=== PATIENT | female | born 1980 | race Caucasian/White ===

== ENCOUNTER 2020-08-15 14:41 | Emergency (ER) | payer SELFPAY ==
[~2020-08-15] VITALS: Ht 152.4 cm; Wt 98.0 kg
[2020-08-15 14:45] VITALS: BP 150/81
--- NOTE | 2020-08-15 14:50 | NUR ---
PT HOOK TO INSPECTOR MULTIFOCAL LENS WITH STABLE V/S
--- NOTE | 2020-08-15 14:58 | NUR ---
DR HERRERA AT BEDSIDE EVALAUTING PT.
[2020-08-15] MEDS ORDERED: DICYCLOMINE HCL LIQUID 20 MG, ALUMINUM HYD/MAG/SIMETHICONE 30 ML, LIDOCAINE VISCOUS 2% ... PO ONE ×3 (15:05)
[2020-08-15] MEDS ORDERED: LIDOCAINE VISCOUS 2% 20 ML UDC ONE (15:12)
[2020-08-15] MEDS ORDERED: DICYCLOMINE HCL LIQUID 10 MG/5 ML UDC ONE (15:12)
[2020-08-15] MEDS ORDERED: ALUMINUM HYD/MAG/SIMETHICONE 30 ML UDC ONE (15:12)
--- NOTE | 2020-08-15 15:19 | NUR ---
labs at bedside.
[2020-08-15 15:24] LABS: BASOPHILS # (AUTO) 0.1 K/uL (0.00-0.22); BASOPHILS % (AUTO) 0.7 % (0.0-2.0); EOSINOPHILS # (AUTO) 0.4 K/uL (0-0.4); EOSINOPHILS % (AUTO) 4.4 % (0.0-4.0); HEMATOCRIT 39.5 % (36-48); HEMOGLOBIN 13.5 g/dL (12.0-16.0); LYMPHOCYTES # (AUTO) 1.5 K/uL (2.5-16.5); LYMPHOCYTES % (AUTO) 16.8 % (20.5-51.1); MEAN CORPUSCULAR HEMOGLOBIN 31 pg (27-31); MEAN CORPUSCULAR HGB CONC 34 g/dL (33-37); MEAN CORPUSCULAR VOLUME 89.8 fL (80-94); MONOCYTES # (AUTO) 0.7 K/uL (0.8-1.0); MONOCYTES % (AUTO) 7.7 % (1.7-9.3); NEUTROPHILS # (AUTO) 6.5 K/uL (1.8-7.7); NEUTROPHILS % (AUTO) 70.4 % (42.2-75.2); PLATELET COUNT (AUTO) 271 K/uL (140-450); RED BLOOD CELL COUNT(AUTO) 4.39 MIL/uL (4.20-5.40); RED CELL DISTRIBUTION WIDTH 13.4 % (11.6-13.7); WHITE BLOOD COUNT (AUTO) 9.2 K/uL (4.8-10.8)
--- NOTE | 2020-08-15 17:07 | NUR ---
dr butler at bedside doing US.
[2020-08-15 17:11] LABS: ALBUMIN 3.2 g/dL (3.4-5.0); ANION GAP 13.3 (8-16); CARBON DIOXIDE 25.3 mmol/L (21-32); CREATININE 0.8 mg/dL (0.6-1.3); POTASSIUM 3.6 mmol/L (3.5-5.1); TOTAL BILIRUBIN 0.4 mg/dL (0.0-1.0)
--- NOTE | 2020-08-15 17:40 | NUR ---
alexa robbins at bedside doin ekg.
[2020-08-15 18:15] VITALS: BP 152/89
--- NOTE | 2020-08-15 18:15 | NUR ---
Patient discharged with v/s stable. Written and verbal after care instructions given and explained regarding abdominal pain. Patient alert, oriented and verbalized understanding of instructions. Ambulatory with steady gait. All questions addressed prior to discharge. ID band removed. Patient advised to follow up with PMD. Rx of mylanta given. Patient educated on indication of medication including possible reaction and side effects. Opportunity to ask questions provided and answered.
== END 2020-08-15 18:15 | disposition home or self-care (01) ==
LOC: MED 14:41
DX: R10.9 Unspecified abdominal pain (principal); Z98.890 Other specified postprocedural states
CPT/HCPCS: 36415; 80053; 81002; 81025; 83690; 84484; 85025; 93005; 99285